=== PATIENT | female | born 1990 | race African-American/Black ===

== ENCOUNTER 2025-03-23 15:35 | Emergency (ER) | payer SELFPAY ==
[2025-03-23] MEDS ORDERED: Ondansetron PF 4 MG/2 ML Vial ONE (16:20)
[2025-03-23 16:52] LABS: #Basophils 0.03 10x3/uL (0.0-0.2); #Eosinophils 0.03 10x3/uL (0.0-0.5); #Monocytes 0.67 10x3/uL (0.0-1.1); #Neutrophils 2.19 10x3/uL (1.5-8.4); %Basophils 0.5 % (0.0-2.0); %Eosinophils 0.5 % (0.0-6.0); %Lymphocytes 55.1 % (18.0-47.0); %Monocytes 10.3 % (0.0-10.0); %Neutrophils 33.4 % (40.0-75.0); Hematocrit 46.0 % (34.9-44.5); Hemoglobin 15.8 g/dL (12.0-15.5); Mean Corpuscular Hemoglobin 31.4 pg (27.0-33.0); Mean Corpuscular Volume 91.5 fL (81.6-98.3); Platelet Count 294 10x3/uL (150-450); Red Blood Cell (RBC) Count 5.03 10x6/uL (3.90-5.03); White Blood Cell (WBC) Count 6.52 10x3/uL (3.5-10.5)
[2025-03-23 17:20] LABS: ALT (SGPT) 18 U/L (Less than 34); AST (SGOT) 34 U/L (11-34); Albumin 5.3 g/dL (3.1-4.5); Alkaline Phosphatase 71 U/L (40-110); Anion Gap 16 mmol/L (10-20); BUN (Urea Nitrogen) 10 mg/dL (7.0-18.7); Bilirubin, Total 0.4 mg/dL (0.3-1.2); CK (CPK) 154 U/L (29-168); Calc. Creatinine Clearance 0 mL/min (70-130); Calcium 10.4 mg/dL (7.8-10.44); Carbon Dioxide 26 mmol/L (22-29); Chloride 98 mmol/L (98-107); Globulin 4.0 g/dL (2.4-3.5); Glucose 93 mg/dL (70-105); Lipase 56 U/L (8-78); Magnesium 1.8 mg/dL (1.6-2.6); Potassium 3.0 mmol/L (3.5-5.1); Sodium 137 mmol/L (136-145)
[2025-03-23 19:03] LABS: Acetaminophen Less than 10 mcg/mL (Less than 10); Salicylate Less than 8.0 mg/dL (Less than 8.0)
== END 2025-03-23 19:13 | disposition home or self-care (01) ==
LOC: CSHERS 15:35
DX: F10.239 Alcohol dependence with withdrawal, unspecified (principal); F17.210 Nicotine dependence, cigarettes, uncomplicated
CPT/HCPCS: 36415; 80053; 80307; 82550; 83605; 83690; 83735; 85025; 93005; 96374; J2405